=== PATIENT | female | born 1985 | race Caucasian/White ===

== ENCOUNTER 2017-11-25 17:58 | Emergency (ER) | payer OTHER ==
[~2017-11-25] VITALS: Ht 152.4 cm; Wt 53.3 kg
[~2017-11-25 17:58] MED LIST: ACET-1311 PO; BCPILLS PO; FLUT0.15 NAE; SUMA100T16 PO
[2017-11-25 18:42] VITALS: Ht 152.4 cm; Wt 53.3 kg
[2017-11-25] MEDS ORDERED: MUPIROCIN 2% OINT 22 GM TUBE EXT ONE (19:30)
[2017-11-25] MEDS ORDERED: MUPIOIN4 NAE (19:45)
[2017-11-25 20:03] VITALS: BP 120/83; PULSE 90; TEMP 36.8; O2SAT 100
--- NOTE | 2017-11-27 00:39 | EMERGENCY ROOM VISIT NOTE ---
History First contact with patient: 18:48 Chief Complaint: SINUS CONGESTION/PRESSURE Stated Complaint: SINUS INFECTION Nursing Triage Summary: Pt discovered a "hole" in her nasal septum. She wanted it looked to be sure it wasn't infected before she went on vacation. History of Present Illness The patient is a 32 year old female who presents to the Emergency Room with complaints of hole in her nose. The patient states that she noticed the opening today when she was having some difficulty breathing through her nose. She looked in the mirror and saw a large blood clot. She has gently removed some of the blood clot, but the bulk of it still remains. The patient openly reports snorting drugs in the past. She previously was living in [facility] , and states that last month "she went on a tejada". The patient is evidently trying to reestablish her life and is moved home to this area to be with family. She reportedly has quit doing drugs, but is now concerned for her health. The patient is evidently going on vacation later this week, and wanted her nose evaluated. She is concerned that she need to have surgery. She has not had fever or chills. She rates her discomfort a 1/10. Review of Systems More than 10 systems were reviewed and otherwise negative with the exception of history of present illness. Past Medical/Surgical History Surgical Problems: (1) History of sinus surgery (2) Larned teeth removed Family History Cancer FH: HTN (hypertension) Heart disease Lung disease Social History Smoking Status: Current Every Day Smoker Marital Status: single Occupation Status: employed Current/Historical Medications Scheduled Acetaminophen (Tylenol), 325 MG PO UD Control Pills ( Control Pills), 1 TAB PO DAILY Fluticasone Propionate (Nasal) (Flonase Allergy Relief), 1 SPRAYS SHEILA UD Mupirocin Calcium (Bactroban Nasal), 1 GM SHEILA BID Sumatriptan Succinate (Imitrex), 100 MG PO PRN Physical Exam Vital Signs Date Time Temp Pulse Resp B/P (MAP) Pulse Ox O2 Delivery O2 Flow Rate FiO2 11/25/17 20:03 36.8 90 18 120/83 100 11/25/17 18:42 36.8 90 18 120/83 100 Room Air Physical Exam VITALS: Vitals are noted on the nurse's note and reviewed by myself. Vital signs stable. GENERAL: Well-developed, well-nourished, white female, who is in no acute distress and resting comfortably. Patient is cooperative with the examination. NOSE: There is an obvious perforation of the septum that measures approximately 8 mm x 6 mm in dimension. There is a large dry blood clot that traverses through this opening and minimally obstructs the bilateral nares. There is no active bleeding. The turbinates are without obvious infection, powdery material , or irritation. MOUTH: Mucous membranes moist. Tonsils are not enlarged. Pharynx without erythema, blood, or exudate. Uvula midline. Airway patent. NECK: Supple without nuchal rigidity. No lymphadenopathy. No thyromegaly. Cervical spine is nontender. HEART: Regular rate and rhythm without murmurs gallops or rubs. LUNGS: Clear to auscultation bilaterally without wheezes, rales or rhonchi. No retractions or accessory muscle use. Medical Decision & Procedures Medications Administered Medications (Trade) Dose Ordered Sig/Alexis Route Start Time Stop Time Status Last Admin Dose Admin Mupirocin (Bactroban 2% Oint) 1 appln NOW ONCE EXT 11/25/17 19:30 11/25/17 19:32 DC 11/25/17 19:54 1 APPLN ED Course Physical exam and history were performed. Nursing notes, EMR, and Medication List were personally reviewed. Patient appears to have a perforated nasal septum. It is rather large on examination it does not appear actively infected. This is likely from drug abuse, which the patient freely admits to using last month. She does not appear toxic on examination. There is no evidence of facial or nasal swelling. No lymphadenopathy. I discussed the case with the on-call ENT, Dr. Leon, who recommended Bactroban and saline nasal wash. The patient is to follow-up with ENT upon returning home from vacation. The patient was otherwise invited back to the ER with any new, worsening, or concerning symptoms. The chart was completed utilizing [employer] Speech Voice Recognition Software. Grammatical errors, random word insertions, pronoun errors, and incomplete sentences are an occasional consequence of this system due to software limitations, ambient noise, and hardware issues. Any formal questions or concerns about the content, text, or information contained within the body of this dictation should be directly addressed to the provider for clarification. . Medical Decision Differential diagnosis includes, but is not limited to: Infection, drug abuse, perforation, and others Impression Primary Impression: Perforated nasal septum Departure Information Dispostion Home / Self-Care Condition GOOD Prescriptions Mupirocin Calcium (BACTROBAN NASAL) 2 % Oin 1 GM SHEILA BID for 5 Days, #10 GM 2 Refills Prov: Flavio Rodriguez PA-C 11/25/17 Referrals Adan Leon M.D. Forms HOME CARE DOCUMENTATION FORM, IMPORTANT VISIT INFORMATION Patient Instructions My [facility] Additional Instructions You were seen and evaluated today on an emergency basis only. This is not a substitute for, or an effort to provide, complete comprehensive medical care. It is not possible to recognize and treat all injuries or illnesses in a single emergency department visit. For this reason it is recommended that you followup with [facility], Dr. Leon's office, for ongoing care and evaluation. Apply Bactroban twice daily to both nostrils Use a Perla pot or other similar saline nasal wash You are welcome to return to the emergency department anytime with new, worsening, or concerning symptoms.
== END 2017-11-25 20:04 | disposition home or self-care (01) ==
LOC: C.EDB 17:59 → C.EDD 20:04
DX: J34.89 Other specified disorders of nose and nasal sinuses (principal); F19.10 Other psychoactive substance abuse, uncomplicated; F17.200 Nicotine dependence, unspecified, uncomplicated; Z79.3 Long term (current) use of hormonal contraceptives; Z82.49 Family history of ischemic heart disease and other diseases of the circulatory system